=== PATIENT | female | born 1980 | race Caucasian/White ===

== ENCOUNTER 2016-11-04 13:49 | Outpatient (CLI) ==
[2016-01-22 11:17] VITALS: BMI 32.8
--- NOTE | 2016-11-04 14:35 | DI ---
EXAM: Lumbar spine seven views HISTORY: Disc degeneration, arthropathy COMPARISON: None TECHNIQUE: Seven views lumbar spine were performed including oblique views and flexion and extensio n lateral views FINDINGS: Sacroiliac joints intact. Sacral arcuate lines intact. Mild leftward curvature lower th oracic and lumbar spine. There is mild multilevel facet arthrosis. Vertebral bodies normal in heig ht. Small multilevel marginal osteophyte formation. Intervertebral spaces maintained. No anteroli sthesis or retrolisthesis in neutral position or with flexion or extension. IMPRESSION: Mild chronic discogenic degenerative disease and facet arthrosis. No segment instabilit y. Mild leftward curvature lower thoracic and lumbar spine.
== END 2016-11-04 13:50 | disposition home or self-care (01) ==
LOC: RAD 13:49
PROVIDERS: ATTEND Pain Medicine Interventional Pain Medicine
DX: M47.816 Spondylosis without myelopathy or radiculopathy, lumbar region (principal); M47.817 Spondylosis without myelopathy or radiculopathy, lumbosacral region; M43.17 Spondylolisthesis, lumbosacral region; M51.36 Other intervertebral disc degeneration, lumbar region; M51.37 Other intervertebral disc degeneration, lumbosacral region

== ENCOUNTER 2018-11-22 16:48 | Outpatient (CLI) ==
[2016-01-22 11:17] VITALS: BMI 32.8
== END 2018-11-22 16:49 | disposition home or self-care (01) ==
LOC: CAR 16:48
PROVIDERS: ATTEND Nurse Practitioner Family
DX: R00.2 Palpitations (principal)
CPT/HCPCS: 93005; 93010

== ENCOUNTER 2018-12-02 15:14 | Outpatient (CLI) ==
[2016-01-22 11:17] VITALS: BMI 32.8
--- NOTE | 2018-12-07 10:34 | HOLTER ---
PATIENT INFORMATION AND COMMENTS Attending Physician: DR. JESÚS PETERSEN Indications: PALPITATIONS __ Patient Medications: TIZANIDINE, NORCO __ Pre-procedure Summary: Protocol: Standard Heart Rate Started: 12/02/181538 Minimum: 58 BPM Weight: 155 LBS Ended: 12/03/181538 Maximum: 161 BPM Height: 63" Duration: 24 HOURS Average: 86 BPM _ INTERPRETATIONS/OBSERVATIONS: 1. BASIC RHYTHM: SINUS RHYTHM; 58 BPM TO 160 BPM, AVERAGE 85 BPM 2. PAC'S / PVC'S--INFREQUENT 3. NO ST-T WAVE CHANGES FROM BASELINE 4. ACTIVITY LOG NOT MAINTAINED MTDD
== END 2018-12-02 15:15 | disposition home or self-care (01) ==
LOC: CAR 15:14
PROVIDERS: ATTEND Nurse Practitioner Family
DX: R00.2 Palpitations (principal)
CPT/HCPCS: 93227

== ENCOUNTER 2018-12-30 14:34 | Outpatient (CLI) ==
[2016-01-22 11:17] VITALS: BMI 32.8
--- NOTE | 2019-01-02 11:42 | MAMMO ---
EXAM: Bilateral digital screening mammogram (2-D and 3-D) History: Screening Comparison: Bilateral mammogram 10/14/2016 Findings: MLO and CC views of bilateral breasts demonstrate scattered fibroglandular breast parenchy ma. There are no dominant masses, no suspicious microcalcifications and no architectural distortions . CAD was reviewed by the radiologist. Tomosynthesis was performed. Impression: Stable negative mammogram. Recommend followup routine screening mammography in 1 year. BIRADS 1, negative
== END 2018-12-30 14:35 | disposition home or self-care (01) ==
LOC: RAD 14:34
PROVIDERS: ATTEND Nurse Practitioner Family
DX: Z12.31 Encounter for screening mammogram for malignant neoplasm of breast (principal); R00.2 Palpitations